=== PATIENT | male | born 1965 | race Caucasian/White ===

== ENCOUNTER 2022-04-03 06:34 | Day surgery (SDC) | payer OTHER ==
[~2022-04-03] VITALS: Ht 175.3 cm; Wt 137.0 kg
[2022-04-03] MEDS ORDERED: MIDAZOLAM 2 MG/2 ML VIAL ONE ×2 (07:41)
[2022-04-03] MEDS ORDERED: fentaNYL citrate 0.05 MG/ML VIAL ONE (07:41)
[2022-04-03] MEDS ORDERED: MIDAZOLAM 2 MG/2 ML VIAL IVP ONE (13:35)
== END 2022-04-03 08:40 | disposition home or self-care (01) ==
LOC: MMU 06:34 → MDS 06:34
PROVIDERS: ATTEND Internal Medicine Gastroenterology
DX: K21.00 Gastro-esophageal reflux disease with esophagitis, without bleeding (principal); K44.9 Diaphragmatic hernia without obstruction or gangrene; Z20.822 Contact with and (suspected) exposure to COVID-19
CPT/HCPCS: 43235; 87426; J2250; J3010